=== PATIENT | female | born 1950 | race Caucasian/White ===

== ENCOUNTER 2017-04-23 06:55 | Day surgery (SDC) | payer MEDICARE, BC ==
[2017-04-23] MEDS ORDERED: Lactated Ringers 1,000 ML IV SCH (07:30)
[2017-04-23] MEDS ORDERED: Midazolam 1 MG/ML 2 ML SDV ONE (07:59)
[2017-04-23] MEDS ORDERED: Propofol 200 MG/20 ML SDV ONE ×2 (07:59→08:50)
[2017-04-23] MEDS ORDERED: fentaNYL 100 MCG/2 ML SDV ONE (07:59)
[2017-04-23] MEDS ORDERED: Glycopyrrolate 0.2 MG/ML 2 ML SDV ONE (08:50)
[2017-04-23 09:47] VITALS: BP 105/80
--- NOTE | 2017-04-23 12:52 | OR ---
DATE OF PROCEDURE: 04/23/2017 PREOPERATIVE DIAGNOSES: 1. Gastroesophageal reflux disease. 2. History of colon polyps. 3. Hiatal hernia. POSTOPERATIVE DIAGNOSES: Gastroesophageal reflux disease, small gastric polyp, duodenal ulcer, diverticulosis, history of colon polyps, and hiatal hernia. PROCEDURES: Esophagogastroduodenoscopy with duodenal and antral biopsies for CLOtest and sent for pathology to look for Helicobacter pylori. Biopsy resection of small gastric polyp. Biopsy of gastroesophageal junction. Colonoscopy to the cecum. ANESTHESIA: IV anesthesia with monitored anesthesia care. INDICATIONS: This 67-year-old white female is referred for upper and lower endoscopy. Indication for upper endoscopy is gastroesophageal reflux disease. Indication for colonoscopy is history of colon polyps. Her last colonoscopic exam was done 3 years ago. I counseled her for these procedures including risks and alternatives, and she gave her informed consent to proceed. DESCRIPTION OF PROCEDURE: The patient was placed in the left lateral decubitus position. IV anesthesia was administered by the Anesthesia Service. Time-out was held. The flexible video Olympus upper endoscope was passed through her mouth, down her esophagus, and into her stomach. The scope was easily passed through the pylorus into the duodenal reaching its third portion. The scope was then slowly withdrawn, examining the mucosa throughout. The duodenal mucosa distally appeared unremarkable. In the duodenal bulb, there was evidence of inflammation and we saw a fabrizio ulcer. The scope was brought up through the pylorus into the antrum. There was red streaking emanating from the pylorus consistent with gastritis. We obtained gastric and antral biopsies for CLOtest and sent tissue for pathology to look for Helicobacter pylori. The scope was retroflexed. A prominent hiatal hernia was seen. After the scope was straightened, we saw a small polyp of the stomach which was removed and sent to the laboratory. The scope was then brought up through the hiatal hernia , which measured about 5 cm in length. The GE junction was abnormal and the Z-line was not straight. We obtained multiple, totalling at least six biopsies of the gastroesophageal junction. The scope was then brought proximally up through remainder of the esophagus which otherwise appeared unremarkable and was removed. Next, a rectal exam was performed, which was unremarkable. The flexible video Olympus colonoscope was introduced through her anus, up her rectum, and out her colon, all the way to the cecum. EN route, in the left side, we saw a few scattered diverticula. There was no bleeding or inflammation associated with any of them. Once the cecum was reached, the scope was slowly withdrawn, examining the mucosa throughout. No additional mucosal abnormalities were noted. The scope was retroflexed in the rectum. Once the distal rectum appearing unremarkable, the scope was straightened and removed. She tolerated the procedure well. Avinash Lester MD /[id number]
== END 2017-04-23 09:48 | disposition home or self-care (01) ==
LOC: JP.SDS 06:55
PROVIDERS: ATTEND Surgery
DX: Z12.11 Encounter for screening for malignant neoplasm of colon (principal); K57.30 Diverticulosis of large intestine without perforation or abscess without bleeding; K31.7 Polyp of stomach and duodenum; K21.9 Gastro-esophageal reflux disease without esophagitis; K44.9 Diaphragmatic hernia without obstruction or gangrene; Z86.010 Personal history of colon polyps; F32.9 Major depressive disorder, single episode, unspecified; M19.90 Unspecified osteoarthritis, unspecified site
CPT/HCPCS: 43239; 87081; G0105; J2250; J2704; J3010; 88305; 88342; J3490